=== PATIENT | female | born 1975 | race Caucasian/White ===

== ENCOUNTER → 2017-12-25 | Outpatient (CLI) | payer BC ==
--- NOTE | 2017-12-25 16:19 | MAMMOGRAPHY REPORT ---
BILATERAL FIRST EVER DIGITAL DIAGNOSTIC MAMMOGRAM TOMOSYNTHESIS WITH CAD AND TARGETED RIGHT ULTRASOUN CLINICAL HISTORY: 42-year-old woman presents for diagnostic evaluation of the right breast. She initi ally reported pain and presented to her provider, who identified a palpable lump in the upper outer q uadrant of the right breast on clinical breast exam. Also baseline mammograms. Patient has a history of psoriasis. TECHNIQUE: The study was acquired using full field digital technology and interpreted from soft copy. Breast tomosynthesis in addition to standard 2D mammography was performed. Current study was also ev aluated with a Computer Aided Detection (CAD) system. COMPARISON: No prior exams were available for comparison. BREAST COMPOSITION: There are scattered areas of fibroglandular density in both breasts. FINDINGS: A triangular palpable marker was placed in the area of concern pointed out by the patient, in the approximate 1130 right breast, 7 cm from the nipple. There is a lobulated, partially circumsc ribed and obscured 14 x 9 mm mass in the slightly lateral, posterior right breast on CC tomosynthesis slice 36/76, which does not definitely correlate with the area of palpable concern. Nevertheless, f urther evaluation with ultrasound was performed. There are also prominent bilateral axillary lymph n odes. No other suspicious masses, calcifications, asymmetries or areas of architectural distortion a re seen bilaterally. No nipple retraction or focal skin thickening identified. Targeted ultrasound was performed in the area of palpable lump pointed out by the patient, in the taniya roximate 1130 right breast, 7 cm from the nipple. On palpation, there is an ill-defined 3-4 cm mass that almost feels like a ridge. Targeted ultrasound performed over this area demonstrates an ill-def ined hypoechoic solid versus cystic lobulated mass located 3 cm deep to the dermis, measuring 1.3 x 0 .5 x 0.9 mm. It is unclear if this represents a solid or cystic mass but this may correlate with the mammographic finding seen on the right cc view. Further characterization with ultrasound-guided cys t aspiration versus core needle biopsy is recommended. Then additional sonographic evaluation was performed in the right and left axilla. There are slightl y prominent lymph nodes bilaterally, with mild cortical thickening, measuring up to 4.2 mm. The lymp h nodes could represent inflammatory lymph nodes or possibly reactive given the patient's history of psoriasis. Clinical follow-up is recommended and would also recommend repeat mammogram and ultrasoun d imaging in 6 months to ensure stability. No other suspicious mass, architectural distortion or cluster of microcalcifications is seen. IMPRESSION: ACR BI-RADS CATEGORY 4: SUSPICIOUS, ULTRASOUND ACR BI-RADS CATEGORY 4: SUSPICIOUS 1. There is an ill-defined hypoechoic solid versus cystic mass measuring 1.3 cm in the 11:30 right b reast, 7 cm from the nipple, near an area of palpable concern identified by the patient's provider. As there is a concern for possible right breast mastitis, further characterization with ultrasound-gu ided cyst aspiration versus core needle biopsy is recommended. If this lesion is cystic, the fluid s hould be sent for culture and Gram stain, as well as cytologic analysis. 2. Prominent bilateral axillary lymph nodes noted mammographically, with slightly prominent bilatera l axillary lymph node seen on ultrasound, with mild cortical thickness. The lymph nodes could be luh ctive or inflammatory due to the patient's psoriasis although clinical correlation and clinical follo w-up are recommended. Repeat imaging with bilateral mammograms and ultrasound is also recommended in 6 months. 3. No mammographic evidence of malignancy in the left breast. These results and recommendations were discussed with the patient at the time of the exam. She tenta tively scheduled the right breast biopsy and follow-up imaging prior to leaving our department. Some breast cancers are not detected with mammography. A negative mammographic report should not holden y biopsy if a clinically suggestive mass is present. Radha Brantley M.D. ay/:12/25/2017 15:19:29 Surgical Physician Assistant: RT Juma(Leigh)(M), [facility] letter sent: Abnormal 4/5 OVERALL STUDY BIRADS: 4 Suspicious abnormality
== END | disposition home or self-care (01) ==
LOC: C.MAMM 10:56
PROVIDERS: ATTEND Family Medicine
DX: N63.11 Unspecified lump in the right breast, upper outer quadrant (principal)